=== PATIENT | male | born 1955 | race Caucasian/White ===

== ENCOUNTER 2021-11-11 10:49 | Emergency (ER) | payer MEDICARE, SELFPAY ==
[2021-11-11 11:03] VITALS: BP 149/103; PULSE 73; RESP 16; TEMP 36.6; O2SAT 96
[2021-11-11 11:05] VITALS: BP 99/52
--- NOTE | 2021-11-11 11:48 | ED.NAVMDI ---
HPI - Nausea/Vomiting/Diarrhea General Chief complaint: Nausea/Vomiting/Diarrhea Stated complaint: diarrhea,runny nose Time Seen by Provider: 11/11/21 11:15 Source: patient Mode of arrival: ambulatory Limitations: no limitations History of Present Illness HPI Narrative: 66-year-old male presents with complaint of diarrhea for 2 to 3 days. Reports having several episodes, has been incontinent of diarrhea during the night. Taking Imodium with little relief. Is able to drink plenty of water and Gatorade to stay hydrated. Went on a recent cruise with several international stops. States that he drank mostly bottled water but did drink some lemonade offered and [place]. Did a COVID test 2 days ago that was negative. All systems reviewed and negative except as noted above. Related Data Allergies Allergy/AdvReac Type Severity Reaction Status Date / Time codeine Allergy Intermediate RASH Verified 08/24/16 07:39 latex Allergy Unknown RASH Verified 08/24/16 07:39 Review of Systems Review of Systems: CONSTITUTIONAL: Denies fever, chills, or sweats. EYES: Denies visual changes, redness, or discharge. ENT: Denies rhinorrhea, congestion, sore throat, or otalgia. CARDIOVASCULAR: Denies chest pain, palpitations, or edema. RESPIRATORY: Denies cough or dyspnea. GASTROINTESTINAL: Denies abdominal pain, nausea, vomiting. Reports diarrhea. GENITOURINARY: Denies dysuria or hematuria. SKIN: Denies rash or itching. MUSCULOSKELETAL: Denies back pain, joint pain, or myalgia. NEUROLOGIC: Denies headache, numbness, or weakness. PSYCHIATRIC: Denies anxiety or depression. All other systems reviewed are negative, except as documented in HPI. PMFSH Comments At time of signature, agree with nursing past medical, surgical, social and family history. There is no relevant family history pertinent to the presenting complaint. Exam Narrative: GENERAL: This is a well-nourished, well-developed patient, in no apparent distress. HEAD: normocephalic, atraumatic. EYES: PERRL. Sclera clear/white. Vision is grossly intact. EARS: External ears normal, auditory canals clear and without drainage, TMs normal without perforation. Hearing grossly intact. NOSE: External nose normal with no obvious nasal discharge, nares without redness, no rhinorrhea. THROAT: Mucous membranes moist, posterior pharynx clear. NECK: Neck supple, non-tender without lymphadenopathy, masses or thyromegaly. CARDIOVASCULAR: Regular rate and rhythm without murmurs, gallops, or rubs. RESPIRATORY: Clear to auscultation. Breath sounds equal bilaterally. No wheezes, rales, or rhonchi. GASTROINTESTINAL: Abdomen soft, non-tender, nondistended. Bowel sounds are active. No hepato-splenomegaly, or palpable masses. No guarding. SKIN: warm, Dry, intact with no suspicious lesions or rash, good texture and turgor. NEURO: awake, alert, and oriented to person, place and time. There were no obvious focal neurologic abnormalities. EXTREMITIES: No joint tenderness, effusion, or edema noted. Course Course Level of Care: Express Care Visit Vital Signs Vital signs: Vital Signs Temperature 36.6 C 11/11/21 11:03 Pulse Rate 73 11/11/21 11:03 Respiratory Rate 16 11/11/21 11:03 Blood Pressure 149/103 H 11/11/21 11:03 Pulse Oximetry 96 11/11/21 11:03 Oxygen Delivery Room Air 11/11/21 11:03 Temperature 36.6 C 11/11/21 11:03 Pulse Rate 73 11/11/21 11:03 Respiratory Rate 16 11/11/21 11:03 Blood Pressure 99/52 L 11/11/21 11:05 Pulse Oximetry 96 11/11/21 11:03 Oxygen Delivery Room Air 11/11/21 11:03 Reviewed MDM - Nausea/Vomiting/Diarrhea MDM Narrative Medical decision making narrative: Patient is aware of diagnosis, understands and agrees to treatment plan. Anticipatory guidance given. Patient agrees to follow-up as directed and is aware of reasons to seek care at the emergency department. Portions of this record may have been created with voice recognition software [employer]
== END 2021-11-11 11:45 | disposition home or self-care (01) ==
PROVIDERS: Emergency Provider Nurse Practitioner Family; PCP Internal Medicine
DX: R19.7 Diarrhea, unspecified (principal)
CPT/HCPCS: 99213; G0463

== ENCOUNTER 2022-04-21 08:56 | Emergency (ER) | payer MEDICARE, SELFPAY ==
--- NOTE | ~2022-04-21 | XR_ITS ---
EXAMINATION: XR chest 2V DATE: 04/21/2022 09:15 INDICATION: Shortness of breath and cough TECHNIQUE: Frontal and lateral views of the chest are obtained COMPARISON: None available FINDINGS: The lungs are free of acute opacities. No pleural effusion or pneumothorax. The cardiomedia stinal silhouette is normal. There is severe thoracic spondylosis. There are partially imaged changes of lumbar fusion. Surgical clips project over the left midlung zone. There are healed left-sided rib fractures. IMPRESSION: 1. No acute cardiopulmonary abnormality. Reviewed, dictated and finalized at location A. [employer]
--- NOTE | 2022-04-21 09:00 | ED.URI ---
HPI - URI/Sore Throat General Chief Complaint: Upper Respiratory Infection Stated Complaint: COUGH/SOB Time Seen by Provider: 04/21/22 09:00 Source: patient and RN notes reviewed History of Present Illness HPI Narrative: Patient is a 66-year-old male who presents to urgent care with complaints of increased shortness of breath, cough, body aches. Patient states the symptoms started on Wednesday and he did have a fever at that time. Patient was recently out of town visiting family and his son-in-law was ill with a fever. Patient and spouse both tested negative for COVID. Patient did take a Z-Mark with his last dose being either last night or early this morning. Patient also spoke to his PCP yesterday who called him a prescription for Levaquin. Patient has been using his inhalers for COPD as well as his CPAP. No other acute complaints. Slightly dyspneic. Otherwise no acute distress noted. Patient aware of the plan of care. Some parts of this dictation were generated by voice recognition software and may contain typographical and/or grammatical inaccuracies. Related Data Home Medications Medication Instructions Recorded Confirmed albuterol sulfate 90 mcg/actuation 2 inh inhalation Q4H 01/26/22 04/21/22 aerosol inhaler amitriptyline 75 mg tablet 75 mg PO DIRECTED 01/26/22 04/21/22 carisoprodol 350 mg tablet 350 mg PO DIRECTED 01/26/22 04/21/22 celecoxib 200 mg capsule 200 mg PO DIRECTED 01/26/22 04/21/22 cholecalciferol (vitamin D3) 125 125 mcg PO DAILY 01/26/22 04/21/22 mcg (5,000 unit) capsule fluoxetine 20 mg capsule (Prozac) 20 mg PO DAILY 01/26/22 04/21/22 gabapentin 300 mg capsule 300 mg PO DAILY 01/26/22 04/21/22 methotrexate sodium 2.5 mg tablet 5 mg PO DIRECTED 01/26/22 04/21/22 metoprolol tartrate 50 mg tablet 50 mg PO DAILY 01/26/22 04/21/22 nitroglycerin 0.4 mg/hr 1 patch transdermal DAILY 01/26/22 04/21/22 transdermal 24 hour patch (Nitro-Dur) olmesartan 5 mg tablet (Benicar) 5 mg PO DAILY 01/26/22 04/21/22 rosuvastatin 40 mg tablet 40 mg PO DAILY 01/26/22 04/21/22 Allergies Allergy/AdvReac Type Severity Reaction Status Date / Time codeine Allergy Intermediate RASH Verified 04/21/22 09:05 latex Allergy Unknown RASH Verified 04/21/22 09:05 Review of Systems Review of Systems: CONSTITUTIONAL: Denies fever, chills, or sweats. EYES: Denies visual changes, redness, or discharge. ENT: Denies rhinorrhea, congestion, sore throat, or otalgia. CARDIOVASCULAR: Denies chest pain, palpitations, or edema. RESPIRATORY: Reports of cough and dyspnea GASTROINTESTINAL: Denies abdominal pain, nausea, vomiting, or diarrhea. GENITOURINARY: Denies dysuria or hematuria. SKIN: Denies rash or itching. MUSCULOSKELETAL: Denies back pain, joint pain, or myalgia. NEUROLOGIC: Denies headache, numbness, or weakness. All other systems reviewed are negative, except as documented in HPI. [facility] Social History Social History (Updated 01/26/22 @ 10:21 by Hillary Stoddard [facility]) Smoking status: Never smoker Tobacco type: cigarettes Alcohol intake: never Substance use: never Comments At the time of my signature, I reviewed and agree with the nursing past medical, surgical, social, and family history. There is no relevant family history pertinent to the patient complaint. Exam Narrative: GENERAL: This is a well-nourished, well-developed patient, in no apparent distress. HEAD: normocephalic, atraumatic. EYES: PERRL. Sclera clear/white. Vision is grossly intact. EARS: External ears normal, auditory canals clear and without drainage, TMs normal without perforation. Hearing grossly intact. NOSE: External nose normal with no obvious nasal discharge, nares without redness, no rhinorrhea. THROAT: Mucous membranes moist, posterior pharynx clear. Moderate postnasal drainage NECK: Neck supple, non-tender without lymphadenopathy CARDIOVASCULAR: Regular rate and rhythm without murmurs, gallops, or rubs. RESPIRATORY: Crackles
[2022-04-21 09:01] VITALS: BP 114/83; PULSE 72; RESP 18; TEMP 36.6; O2SAT 90
[2022-04-21] MEDS: ALBUTEROL SULFATE NEB 2.5 MG/3 ML INH INHALATION (09:46)
[2022-04-21] MEDS: IPRATROPIUM BR 0.02% INH SOLN 0.5 MG/2.5 ML VIAL INHALATION (09:47)
--- NOTE | 2022-04-21 11:12 | PC.NURSE ---
09-- pt ambulatory to xray 0930- radiologist called and would like additional views of films, so pt back to radiology.
[2022-04-21 11:26] VITALS: PULSE 86; RESP 22; O2SAT 91
== END 2022-04-21 10:10 | disposition home or self-care (01) ==
PROVIDERS: Emergency Provider Nurse Practitioner Family; PCP Internal Medicine
DX: J40 Bronchitis, not specified as acute or chronic (principal); J44.9 Chronic obstructive pulmonary disease, unspecified; I25.10 Atherosclerotic heart disease of native coronary artery without angina pectoris; E78.00 Pure hypercholesterolemia, unspecified; I10 Essential (primary) hypertension; I34.1 Nonrheumatic mitral (valve) prolapse; M06.9 Rheumatoid arthritis, unspecified; L40.50 Arthropathic psoriasis, unspecified; Z95.1 Presence of aortocoronary bypass graft
CPT/HCPCS: 71046; 94640; 99213; G0463

== ENCOUNTER → 2022-06-24 13:21 | Outpatient (CLI) | payer MEDICARE, SELFPAY ==
--- NOTE | ~2022-06-24 | XR_ITS ---
XR shoulder LT min 2V 06/24/2022 13:52 Indication: Left shoulder pain Procedure: 4 views left shoulder Comparison: No prior studies for comparison. Findings: There is mild polyarticular osteoarthritis of the left shoulder. No fracture or traumatic m alalignment. No significant soft tissue abnormality. No foreign bodies. Impression: 1: Mild polyarticular osteoarthritis. Reviewed, dictated and finalized at location A. [employer] TECH[employer]ICIAN Impression: 1: Mild polyarticular osteoarthritis.
== END ==
PROVIDERS: PCP Internal Medicine; Visit Provider Internal Medicine Rheumatology
DX: M19.012 Primary osteoarthritis, left shoulder (principal)
CPT/HCPCS: 73030

== ENCOUNTER 2023-04-25 10:28 | Emergency (ER) | payer MEDICARE, SELFPAY ==
--- NOTE | ~2023-04-25 | XR_ITS ---
EXAMINATION: XR chest 2V 04/25/2023 11:00 INDICATION: Shortness of breath. Low oxygen saturation. PROCEDURE: 2 view chest COMPARISON: 04/21/2022 FINDINGS: The lungs are clear. The cardiomediastinal silhouette is within normal limits. There are no pleural effusions. There is no pneumothorax suspected. There is a left thoracotomy defect. Moder ate thoracic spondylosis. IMPRESSION: 1: NO ACUTE CARDIOPULMONARY DISEASE. Reviewed, dictated and finalized at location A. [employer]
[2023-04-25 10:48] VITALS: BP 126/66; PULSE 63; RESP 24; TEMP 36.9; O2SAT 90
--- NOTE | 2023-04-25 11:24 | ED.GENADULT ---
HPI - General Adult General Chief complaint: Upper Respiratory Infection Stated complaint: SOB Source: patient and family Mode of arrival: ambulatory Limitations: no limitations History of Present Illness HPI narrative: Patient presents for evaluation of respiratory symptoms. Symptom onset 2 weeks ago. In last few days his symptoms have worsened. he reports a productive cough of white/ yellow sputum. He has exertional dyspnea. He has an underlying history of COPD. He is not on home oxygen. He denies any fever, chills, chest pain. He smokes 3/4 ppd at home. He has been doing neb treatments BID. He is currently taking a z-perfecto. Saturations at home in 80's with ambulation. Related Data Home Medications Medication Instructions Recorded Confirmed albuterol sulfate 90 mcg/actuation 2 inh inhalation Q4H 01/26/22 04/25/23 aerosol inhaler amitriptyline 75 mg tablet 75 mg PO DIRECTED 01/26/22 04/25/23 carisoprodol 350 mg tablet 350 mg PO DIRECTED 01/26/22 04/25/23 celecoxib 200 mg capsule 200 mg PO DIRECTED 01/26/22 04/25/23 cholecalciferol (vitamin D3) 125 125 mcg PO DAILY 01/26/22 04/25/23 mcg (5,000 unit) capsule fluoxetine 20 mg capsule (Prozac) 20 mg PO DAILY 01/26/22 04/25/23 gabapentin 300 mg capsule 300 mg PO DAILY 01/26/22 04/25/23 methotrexate sodium 2.5 mg tablet 5 mg PO DIRECTED 01/26/22 04/25/23 metoprolol tartrate 50 mg tablet 50 mg PO DAILY 01/26/22 04/25/23 nitroglycerin 0.4 mg/hr 1 patch transdermal DAILY 01/26/22 04/25/23 transdermal 24 hour patch (Nitro-Dur) olmesartan 5 mg tablet (Benicar) 5 mg PO DAILY 01/26/22 04/25/23 rosuvastatin 40 mg tablet 40 mg PO DAILY 01/26/22 04/25/23 adalimumab-atto 40 mg/0.4 mL 40 mg subcut [id number] 04/25/23 04/25/23 subcutaneous auto-injector alprazolam 0.25 mg tablet 0.25 mg PO DAILY 04/25/23 04/25/23 aspirin 81 mg tablet,delayed 81 mg PO DAILY 04/25/23 04/25/23 release (Enteric Coated Aspirin) Allergies Allergy/AdvReac Type Severity Reaction Status Date / Time codeine Allergy Intermediate RASH Verified 04/25/23 10:40 latex Allergy Unknown RASH Verified 04/25/23 10:40 Review of Systems Review of Systems: CONSTITUTIONAL: Denies fever, chills, or sweats. EYES: Denies visual changes, redness, or discharge. ENT: Denies rhinorrhea, congestion, sore throat, or otalgia. CARDIOVASCULAR: Denies chest pain, palpitations, or edema. RESPIRATORY: Reports productive cough of yellow sputum with exertional dyspnea GASTROINTESTINAL: Denies abdominal pain, nausea, vomiting, or diarrhea. GENITOURINARY: Denies dysuria or hematuria. SKIN: Denies rash or itching. MUSCULOSKELETAL: Denies back pain, joint pain, or myalgia. NEUROLOGIC: Denies headache, numbness, dizziness, or weakness. PSYCHIATRIC: Denies anxiety or depression. [facility] Past Medical History Medical History Hyperlipidemia Hypertension Rheumatoid arthritis Surgical History Surgical History No pertinent past surgical history Family History Family History (Updated 04/25/23 @ 11:34 by TOSHIA IslasP, ) Mother Family history non-contributory Social History Social History Smoking packs per day: 0.75 Smoking cigarettes per day: 15.0 Smoking status: Current every day smoker Tobacco type: cigarettes Alcohol intake: never Substance use: never Lack of Transportation: No Lack of Food: Never True Current Housing: I Have Housing Concerned About Future Housing: No Difficulty Paying Gas/Electric Bills: No Difficulty Paying for Meds: No Currently Unemployed: No Education: Trade/Vocational Certificate Difficulty w/ Childcare or Family Care: No Gender identity (if verbalized by the patient): Male Sexual Orientation (if Verbalized by the Patient): Straight or Heterosexual Spiritual ca
[2023-04-25] MEDS: ALBUTEROL SULFATE NEB 2.5 MG/3 ML INH INHALATION (11:34)
[2023-04-25] MEDS: methylPREDNISolone SOD SUCC 125 MG VIAL IM (11:35)
[2023-04-25] MEDS: IPRATROPIUM BR 0.02% INH SOLN 0.5 MG/2.5 ML VIAL INHALATION (11:35)
== END 2023-04-25 12:16 | disposition home or self-care (01) ==
PROVIDERS: Emergency Provider Nurse Practitioner; PCP Internal Medicine
DX: J44.1 Chronic obstructive pulmonary disease with (acute) exacerbation (principal); Z20.822 Contact with and (suspected) exposure to COVID-19; F17.210 Nicotine dependence, cigarettes, uncomplicated; E78.5 Hyperlipidemia, unspecified; I10 Essential (primary) hypertension; M06.9 Rheumatoid arthritis, unspecified; Z79.82 Long term (current) use of aspirin
CPT/HCPCS: 71046; 87426; 87804; 94640; 96372; 99213; C9803; G0463; J2930

== ENCOUNTER 2023-11-07 19:07 | Emergency (ER) | payer MEDICARE, SELFPAY ==
[2023-11-07 19:20] VITALS: BP 106/70; PULSE 67; RESP 16; TEMP 37; O2SAT 96
[2023-11-07] MEDS: TETANUS,DIPHTHERIA,AC PERTUSSIS ADULT (0.5 ML) BOOSTRIX IM (19:23)
--- NOTE | 2023-11-07 19:44 | ED.WOUNDLAC ---
HPI - Wound/Laceration General Chief Complaint: Wound/Laceration Stated Complaint: L 5TH FINGER LACERATION Time Seen by Provider: 11/07/23 19:20 Source: patient, family () and RN notes reviewed Mode of arrival: ambulatory Limitations: no limitations History of Present Illness HPI narrative: Patient was working on his lawn more approximately 2 hours prior to arrival when his hand slipped off his ranch and he cut the dorsum of his left 5th finger on a part of the lawnmower. He is not up-to-date on his tetanus vaccine. Denies numbness or tingling of the finger. Currently rates pain /. No treatment prior to arrival except cleaning the area. Related Data Home Medications Medication Instructions Recorded Confirmed albuterol sulfate 90 mcg/actuation 2 inh inhalation Q4H 01/26/22 11/07/23 aerosol inhaler amitriptyline 75 mg tablet 75 mg PO DIRECTED 01/26/22 11/07/23 carisoprodol 350 mg tablet 350 mg PO DIRECTED 01/26/22 11/07/23 celecoxib 200 mg capsule 200 mg PO DIRECTED 01/26/22 11/07/23 cholecalciferol (vitamin D3) 125 125 mcg PO DAILY 01/26/22 11/07/23 mcg (5,000 unit) capsule fluoxetine 20 mg capsule (Prozac) 20 mg PO DAILY 01/26/22 11/07/23 gabapentin 300 mg capsule 300 mg PO DAILY 01/26/22 11/07/23 methotrexate sodium 2.5 mg tablet 5 mg PO DIRECTED 01/26/22 11/07/23 metoprolol tartrate 50 mg tablet 50 mg PO DAILY 01/26/22 11/07/23 nitroglycerin 0.4 mg/hr 1 patch transdermal DAILY 01/26/22 11/07/23 transdermal 24 hour patch (Nitro-Dur) olmesartan 5 mg tablet (Benicar) 5 mg PO DAILY 01/26/22 11/07/23 rosuvastatin 40 mg tablet 40 mg PO DAILY 01/26/22 11/07/23 alprazolam 0.25 mg tablet 0.25 mg PO DAILY 04/25/23 11/07/23 aspirin 81 mg tablet,delayed 81 mg PO DAILY 04/25/23 11/07/23 release (Enteric Coated Aspirin) fluticasone fur. 100 mcg-umeclid 1 inh inhalation DAILY 08/04/23 11/07/23 62.5 mcg-vilant 25 mcg inhalat.powder (Trelegy Ellipta) Allergies Allergy/AdvReac Type Severity Reaction Status Date / Time codeine Allergy Intermediate RASH Verified 11/07/23 19:32 latex Allergy Unknown RASH Verified 11/07/23 19:32 Review of Systems Review of Systems: CONSTITUTIONAL: Denies body aches, fever, chills, or sweats. EYES: Denies visual changes, redness, or discharge. ENT: Denies rhinorrhea, congestion, sore throat, or otalgia. CARDIOVASCULAR: Denies chest pain, palpitations, or edema. RESPIRATORY: Denies cough or dyspnea. GASTROINTESTINAL: Denies abdominal pain, nausea, vomiting, or diarrhea. GENITOURINARY: Denies dysuria or hematuria. SKIN: + left 5th finger laceration MUSCULOSKELETAL: Denies back pain, joint pain, or myalgia. NEUROLOGIC: Denies headache, numbness, tingling, or weakness. PSYCH: Denies depression or anxiety. [facility] Past Medical History Medical History Hyperlipidemia Hypertension Rheumatoid arthritis Surgical History Surgical History No pertinent past surgical history Family History Family History Mother Family history non-contributory Social History Social History Smoking packs per day: 0.75 Smoking cigarettes per day: 15.0 Smoking status: Current every day smoker Tobacco type: cigarettes Alcohol intake: never Substance use: never Lack of Transportation: No Lack of Food: Never True Current Housing: I Have Housing Concerned About Future Housing: No Difficulty Paying Gas/Electric Bills: No Difficulty Paying for Meds: No Currently Unemployed: No Education: Trade/Vocational Certificate Difficulty w/ Childcare or Family Care: No Gender identity (if verbalized by the patient): Male Sexual Orientation (if Verbalized by the Patient): Straight or Heterosexual Spiritual care concerns: No
== END 2023-11-07 19:53 | disposition home or self-care (01) ==
PROVIDERS: Emergency Provider Nurse Practitioner; PCP Internal Medicine
DX: S61.217A Laceration without foreign body of left little finger without damage to nail, initial encounter (principal); W28.XXXA Contact with powered lawn mower, initial encounter; Z23 Encounter for immunization; F17.210 Nicotine dependence, cigarettes, uncomplicated; E78.5 Hyperlipidemia, unspecified; I10 Essential (primary) hypertension; M06.9 Rheumatoid arthritis, unspecified; Z79.82 Long term (current) use of aspirin
CPT/HCPCS: 12001; 90471; 90715; 99213; G0463

== ENCOUNTER 2024-04-03 09:59 | Outpatient (CLI) | payer MEDICARE, SELFPAY | END 2024-04-03 10:00 | disposition home or self-care (01) | LOC: ANHAUDASC 10:00 | PROVIDERS: PCP Internal Medicine; Visit Provider Otolaryngology | DX: H90.3 Sensorineural hearing loss, bilateral (principal); H93.13 Tinnitus, bilateral; J31.0 Chronic rhinitis; H61.23 Impacted cerumen, bilateral | CPT/HCPCS: 92557; 92567 ==